=== PATIENT | female | born 1960 | race Caucasian/White ===

== ENCOUNTER 2021-08-10 14:15 | Outpatient (REF) | payer OTHER, SELFPAY ==
--- NOTE | ~2021-08-10 | XR_ITS ---
EXAMINATION: XR CHEST CLINICAL INFORMATION: Hemoptysis COMPARISON: None TECHNIQUE: Frontal view of the chest was obtained. FINDINGS: The lungs are well-expanded and clear of acute pneumonic process. The heart size and pulmonary vascularity is normal. There is mild dorsal spine spondylosis. No lytic or sclerotic process seen. XR/XR chest 1V IMPRESSION: Unremarkable chest exam.
== END 2021-08-10 14:16 | disposition home or self-care (01) ==
LOC: HO.HMGCX 14:15
PROVIDERS: PCP Internal Medicine; Visit Provider Nurse Practitioner Acute Care
DX: R04.2 Hemoptysis (principal); R53.83 Other fatigue
CPT/HCPCS: 71045

== ENCOUNTER 2021-08-10 14:28 | Outpatient (REF) | payer OTHER, SELFPAY ==
[2021-08-10 17:14] LABS: Influenza A PCR NEGATIVE (Negative); Influenza B PCR NEGATIVE (Negative); Resp Syncy Virus RNA Qual PCR NEGATIVE (Negative); SARS COV2 PCR INHOUSE NEGATIVE (Negative)
== END 2021-08-10 14:29 | disposition home or self-care (01) ==
LOC: HO.LAB 14:28
PROVIDERS: Visit Provider Nurse Practitioner Acute Care
DX: R53.83 Other fatigue (principal); R04.2 Hemoptysis; Z20.822 Contact with and (suspected) exposure to COVID-19
CPT/HCPCS: 0241U